=== PATIENT | male | born 1975 | race Caucasian/White ===

== ENCOUNTER 2018-12-18 07:03 | Emergency (ER) | payer OTHER ==
[2018-12-18 07:17] VITALS: BP 148/79
--- NOTE | 2018-12-18 07:52 | UC ---
General HPI - HPI Summary HPI Summary: States he has had URI symptoms for the past week, sore throat seems to be worse. A lot of post nasal drip and cough worse at night. Intermittent low grade temp of 99-100 - taking ibuprofen. No N/V/D. No CP or SOB. No hx of seasonal allergies. Nonsmoker. convinced him to get checked out. Meds: reviewed - History of Current Complaint Chief Complaint: UCGeneralIllness Stated Complaint: SORE THROAT Time Seen by Provider: 12/18/18 07:20 Pain Intensity: 5 - Allergy/Home Medications Home Medications: Home Medications NK [No Home Medications Reported] 12/18/18 [History Confirmed 12/18/18] PMH/Surg Hx/FS Hx/Imm Hx Previously Healthy: Yes - Surgical History Surgical History: None - Social History Alcohol Use: Rare Substance Use Type: None Smoking Status (MU): Never Smoked Tobacco Review of Systems All Other Systems Reviewed And Are Negative: Yes ENT: Positive: Sore Throat, Sinus Congestion Respiratory: Positive: Cough Physical Exam Triage Information Reviewed: Yes Appearance: Well-Appearing Vital Signs: Initial Vital Signs Temp 97.9 F 12/18/18 07:12 Pulse 72 12/18/18 07:12 Resp 18 12/18/18 07:12 BP 148/79 12/18/18 07:12 Pulse Ox 97 12/18/18 07:12 Vital Signs Reviewed: Yes ENT: Positive: Pharyngeal erythema, Nasal congestion, Other - nasal turbinates erythematous and edematous Neck: Positive: Supple, Nontender Respiratory: Positive: Lungs clear, Normal breath sounds Cardiovascular: Positive: RRR, No Murmur Course/Dx - Course Course Of Treatment: This is a 43 yr old with cough, congestion and sore throat Assessment Nontoxic appearing Plan Recommend continue supportive care Can try decongestant such as sudafed Flonase nasal spray may also be beneficial Can also try antihistamine like zyrtec If symptoms persist or worsen, recommend follow up with PCP or return to urgent care - Diagnoses Provider Diagnosis: Viral syndrome Discharge - Sign-Out/Discharge Documenting (check all that apply): Patient Departure All imaging exams completed and their final reports reviewed: No Studies - Discharge Plan Condition: Good Disposition: HOME Patient Education Materials: Viral Syndrome (ED) Referrals: No Primary Care Phys,NOPCP [Primary Care Provider] - Care [facility] [Outside] Additional Instructions: Recommend continue supportive care Can try decongestant such as sudafed Flonase nasal spray may also be beneficial Can also try antihistamine like zyrtec If symptoms persist or worsen, recommend follow up with PCP or return to urgent care - Billing Disposition and Condition Condition: GOOD Disposition: Home
== END 2018-12-18 07:50 | disposition home or self-care (01) ==
LOC: UCEAST 07:03
DX: B34.9 Viral infection, unspecified (principal)
CPT/HCPCS: 87651; 99201; G0463